=== PATIENT | male | born 1945 | race Caucasian/White ===

== ENCOUNTER 2018-01-30 07:07 | Observation (INO) | payer MEDICARE, OTHER ==
[~2018-01-30] VITALS: Ht 180.3 cm; Wt 81.7 kg
[2018-01-30] VITALS (7 sets, daily range): BP systolic 108–126; BP diastolic 60–71; Ht 180.3 cm; Wt 81.7 kg
--- NOTE | ~2018-01-30 | EC ---
PATIENT:LASHANDA BOUDREAUX DATE OF SERVICE: 01/30/18 SEX: M MEDICAL RECORD: [id number] DATE OF : [birth year] LOCATION:[address] AGE OF PATIENT: 72 ADMISSION DATE: 01/30/18 REFERRING PHYSICIAN: INTERPRETING PHYSICIAN: IRAM SUMNER MD ECHOCARDIOGRAM REPORT ECHO CHARGES 4 ECHO COMPLETE Date: 01/30/18 CLINICAL DIAGNOSIS: AFIB ECHOCARDIOGRAPHIC MEASUREMENTS (adult normal given) AC root (d.<3.7cm) 3.3 cm LV Septum d (<1.2 cm> 1.3 cm Valve Excursion 1.5 cm LV Septum (systole) 1.4 cm Left Atria (s.<4.0cm> 3.6 cm LVPW d(<1.2cm) 1.9 cm RV (d.<2.3cm) 3.9 cm LVPW (sytole) 2.0 cm LV diastole(<5.6CM) 4.6 cm MV E-F(>70mm/sec) cm LV systole 3.5 cm LVOT Diameter 1.9 cm MV exc.(>10mm) cm Est.ejection fraction (50-75%) % DOPPLER: LVIT cm/sec A 80.0 cm/sec E 79.0 cm/sec LA cm/sec RVSP 24 mmHg LVOT 102 cm/sec AOP1/2T 755 m/s Asc. Ao 137 cm/sec RVOT cm/sec RA cm/sec PA cm/sec AV Gradient Peak 12.25mmHg AV Mean 6.05 mmHg AV Area 2.6 cm MV Gradient Peak 4.16 mmHg MV Mean 1.24 mmHg MV Area cm COMMENTS: Table Maker: Too [place] Operator: Patricia Sumner TAPE# PACS Pericardial Effusion N DATE OF SERVICE: PROCEDURE: Transthoracic echocardiogram. FINDINGS: 1. Left ventricle was difficult to see endocardial structure, but overall ejection fraction appears to be normal at 55% to 60%. There is no regional wall motion abnormalities. The inflow characteristics are consistent with diastolic dysfunction. 2. The left atrium is normal size, shape, structure, and function. ECHOCARDIOGRAM REPORT [id number] LASHANDA BOUDREAUX 3. The aortic valve is normal. 4. The mitral valve has mild mitral regurgitation. 5. Tricuspid valve has mild tricuspid regurgitation, it is not well visualized. 6. The IVC is not well visualized. There is an echogenic structure, right at the junction of the IVC and the right atrium, but it is difficult to see if that represents anything more than an eustachian valve or ridge versus possible thrombus. TRANSINT:[id number] Voice Confirmation ID: [id number] DOCUMENT ID: [id number] IRAM SUMNER MD at 0744 CC: [id number] DICTATION DATE: 01/31/18941 STATUARY PAINTER: 01/31/18 1011 DIS IN 01/31/18 [facility] [address] [place] [address]
[2018-01-30] MEDS ORDERED: CRESTOR40 MG PO (07:18)
[2018-01-30] MEDS ORDERED: PROPRANOLOL HCL20 MG PO (07:18)
[2018-01-30] MEDS ORDERED: COLCRYS0.6 MG PO (07:19)
[2018-01-30] MEDS ORDERED: DIPYRIDAMOLE25 MG PO (07:19)
[2018-01-30] MEDS ORDERED: FLOMAX0.4 MG PO (07:19)
[2018-01-30] MEDS ORDERED: LISINOPRIL5 MG PO (07:19)
[2018-01-30 07:44] LABS: BASOPHILS 0.7 % (0-2); EOSINOPHILS 2.7 % (0-7); HEMOGLOBIN 14.4 g/dL (13.5-17.5); IMMATURE GRANULOCYTES 0.3 % (0-5); LYMPHOCYTES 35.6 % (15-50); MCH 29.7 pg (26.0-34.0); MCHC 33.5 g/dL (31.0-37.0); MCV 88.7 fL (80.0-100.0); MONOCYTES 9.9 % (2-11); NEUTROPHILS 50.8 % (40-80); PLATELET COUNT 195 10x3/uL (130-400); RBC 4.85 10x6/uL (4.20-6.10); RDW 13.7 % (11.5-14.5); WBC 7.1 10x3/uL (4.8-10.8)
[2018-01-30 07:46] LABS: ALBUMIN 3.5 g/dL (3.4-5.0); ALKALINE PHOSPHATASE 68 U/L (46-116); ALT (SGPT) 28 U/L (10-68); BILIRUBIN - TOTAL 0.48 mg/dL (0.2-1.3); CALC OSMOLALITY 279 mosm/kg (275-300); CARBON DIOXIDE 24.9 mmol/L (21.0-32.0); CHLORIDE - SERUM 106 mmol/L (98-107); CREATININE - SERUM 1.2 mg/dL (0.6-1.3); GLUCOSE 109 mg/dL (74-106); POTASSIUM - SERUM 3.9 mmol/L (3.5-5.1); PROTEIN - SERUM 7.6 g/dL (6.4-8.2); SODIUM 139 mmol/L (136-145); UREA NITROGEN 16 mg/dL (7-18); eGFR NON AFRICAN AMERICAN 63 mL/min (90-120)
[2018-01-30 07:51] LABS: TROPONIN-I < 0.017 ng/mL (0.000-0.060)
[2018-01-31] VITALS (8 sets, daily range): BP systolic 90–145; BP diastolic 57–74
[2018-01-31 01:42] LABS: APPEARANCE CLEAR (CLEAR); COLOR YELLOW (YELLOW); GLUCOSE NEGATIVE (NEGATIVE); NITRITE NEGATIVE (NEGATIVE); PROTEIN NEGATIVE (NEGATIVE); SPECIFIC GRAVITY 1.015 (1.005-1.020)
[2018-01-31 01:43] LABS: BILIRUBIN NEGATIVE (NEGATIVE); KETONE NEGATIVE (NEGATIVE); UROBILINOGEN NORMAL (NORMAL)
[2018-01-31 06:26] LABS: BASOPHILS 0.5 % (0-2); EOSINOPHILS 2.6 % (0-7); HEMATOCRIT 38.9 % (42.0-54.0); HEMOGLOBIN 12.7 g/dL (13.5-17.5); IMMATURE GRANULOCYTES 0.3 % (0-5); MCH 29.1 pg (26.0-34.0); MCHC 32.6 g/dL (31.0-37.0); MEAN PLATELET VOLUME 10.5 fL (7.4-10.4); NEUTROPHILS 55.6 % (40-80); PLATELET COUNT 181 10x3/uL (130-400); RBC 4.37 10x6/uL (4.20-6.10); RDW 13.8 % (11.5-14.5); WBC 7.9 10x3/uL (4.8-10.8)
[2018-01-31 07:02] LABS: ANION GAP 10.1 mmol/L (8-16); BILIRUBIN - TOTAL 0.45 mg/dL (0.2-1.3); CALCIUM 8.4 mg/dL (8.5-10.1); CARBON DIOXIDE 26.1 mmol/L (21.0-32.0); CREATININE - SERUM 1.1 mg/dL (0.6-1.3); MAGNESIUM - SERUM 2.1 mg/dL (1.8-2.4); POTASSIUM - SERUM 4.2 mmol/L (3.5-5.1); PROTEIN - SERUM 6.3 g/dL (6.4-8.2); T4 THYROXIN - FREE 1.07 ng/dL (0.76-1.46); THYROID STIMULATING HORMONE 1.21 uIU/mL (0.36-3.74)
[2018-01-31] MEDS ORDERED: ELIQUIS5 MG PO (14:16)
== END 2018-01-31 16:42 | disposition home or self-care (01) ==
LOC: D.ER 07:07 → D.M2 09:01 → OBSVTIME 09:01 → D.M2 01-31 16:42
PROVIDERS: Family Medicine
DX: I48.0 Paroxysmal atrial fibrillation (principal); I95.1 Orthostatic hypotension; Z86.73 Personal history of transient ischemic attack (TIA), and cerebral infarction without residual deficits; E78.5 Hyperlipidemia, unspecified; N40.0 Benign prostatic hyperplasia without lower urinary tract symptoms; I49.3 Ventricular premature depolarization; I25.10 Atherosclerotic heart disease of native coronary artery without angina pectoris; Z95.1 Presence of aortocoronary bypass graft; M10.9 Gout, unspecified